=== PATIENT | female | born 1980 | race Caucasian/White ===

== ENCOUNTER 2017-07-30 03:05 | Emergency (ER) | payer BC ==
[~2017-07-30] VITALS: Ht 172.7 cm; Wt 66.2 kg
[2017-07-30 03:12] VITALS: Ht 172.7 cm; Wt 66.2 kg
[2017-07-30 05:14] LABS: BASOPHIL % 0.6 % (0-2); PLATELET COUNT 258 x10^3mcL (130-400); RED CELL DISTRIBUTION WIDTH 12.6 % (11.5-14.5)
[2017-07-30 05:24] LABS: CALCIUM 8.7 mg/dL (8.5-10.1); CARBON DIOXIDE 27.7 mmol/L (21-32); CHLORIDE SERUM 103 mmol/L (98-107); CREATININE SERUM 0.7 mg/dL (0.6-1.0); GFR1 > 60 mL/min; GLUCOSE SERUM 86 mg/dL (74-106); POTASSIUM SERUM 3.1 mmol/L (3.5-5.1); SODIUM SERUM 143 mmol/L (136-145)
[2017-07-30 05:31] LABS: ALBUMIN 3.9 g/dL (3.4-5.0); ALKALINE PHOSPHATASE 82 U/L (46-116); ALT/SGPT 50 U/L (14-59); AST/SGOT 51 U/L (15-37); TOTAL PROTEIN, SERUM 7.5 g/dL (6.4-8.2)
[2017-07-30 07:53] VITALS: BP 139/88
== END 2017-07-30 07:53 | disposition home or self-care (01) ==
LOC: ED 03:05
DX: K29.20 Alcoholic gastritis without bleeding (principal); F10.229 Alcohol dependence with intoxication, unspecified; Y90.6 Blood alcohol level of 120-199 mg/100 ml; K85.90 Acute pancreatitis without necrosis or infection, unspecified; K75.9 Inflammatory liver disease, unspecified
CPT/HCPCS: G0480; J7030

== ENCOUNTER 2018-11-12 19:30 | Emergency (ER) | payer BC ==
[~2018-11-12] VITALS: Ht 172.7 cm; Wt 73.3 kg
[2018-11-12 19:34] VITALS: Ht 172.7 cm; Wt 73.3 kg
[2018-11-12 21:41] LABS: BASOPHIL % 0.8 % (0-2); RED CELL DISTRIBUTION WIDTH 12.8 % (11.5-14.5)
[2018-11-12 21:52] LABS: PLATELET COUNT 439 x10^3mcL (130-400)
[2018-11-12 21:53] LABS: CALCIUM 8.4 mg/dL (8.5-10.1); CARBON DIOXIDE 28.4 mmol/L (21-32); CHLORIDE SERUM 102 mmol/L (98-107); CREATININE SERUM 0.8 mg/dL (0.6-1.0); GFR1 > 60 mL/min; GLUCOSE SERUM 89 mg/dL (74-106); POTASSIUM SERUM 3.8 mmol/L (3.5-5.1); SODIUM SERUM 140 mmol/L (136-145)
[2018-11-12 21:57] LABS: ALBUMIN 3.8 g/dL (3.4-5.0); ALKALINE PHOSPHATASE 77 U/L (46-116); ALT/SGPT 31 U/L (14-59); AST/SGOT 25 U/L (15-37); LIPASE 133 IU/L (73-393); PHOSPHOROUS 3.5 mg/dL (2.5-4.9); TOTAL PROTEIN, SERUM 8.2 g/dL (6.4-8.2)
[2018-11-12 22:10] LABS: AMPHETAMINE QUAL UR NONE DETECTED (See below)
[2018-11-12 23:06] VITALS: BP 136/86
== END 2018-11-12 23:06 | disposition home or self-care (01) ==
LOC: ED 19:30
PROVIDERS: Emergency Medicine
DX: R11.2 Nausea with vomiting, unspecified (principal); F10.239 Alcohol dependence with withdrawal, unspecified; F32.9 Major depressive disorder, single episode, unspecified; Z88.2 Allergy status to sulfonamides
CPT/HCPCS: G0480; J1885; J2405; J7030

== ENCOUNTER 2019-04-26 20:14 | Observation (INO) | payer OTHER ==
[~2019-04-26] VITALS: Ht 175.3 cm; Wt 68.2 kg
[2019-04-26 20:33] VITALS: Ht 175.3 cm; Wt 68.2 kg
[2019-04-26 20:51] LABS: BASOPHIL % 1.2 % (0-2); PLATELET COUNT 356 x10^3mcL (130-400)
[2019-04-26 20:58] LABS: CALCIUM 8.3 mg/dL (8.5-10.1); CARBON DIOXIDE 29.1 mmol/L (21-32); CHLORIDE SERUM 104 mmol/L (98-107); CREATININE SERUM 0.8 mg/dL (0.6-1.0); GFR1 > 60 mL/min; GLUCOSE SERUM 97 mg/dL (74-106); POTASSIUM SERUM 3.6 mmol/L (3.5-5.1); SODIUM SERUM 142 mmol/L (136-145)
[2019-04-26 21:04] LABS: ALKALINE PHOSPHATASE 81 U/L (46-116); ALT/SGPT 41 U/L (14-59); AST/SGOT 39 U/L (15-37); BILIRUBIN TOTAL 0.6 mg/dL (0.20-1.00); TOTAL PROTEIN, SERUM 8.2 g/dL (6.4-8.2)
[2019-04-26 23:25] LABS: UA SPECIFIC GRAVITY 1.015 (1.005-1.035); microscopic required? YES; urine erythrocyte 1+ (NEGATIVE)
[2019-04-26 23:53] LABS: AMPHETAMINE QUAL UR NONE DETECTED (See below)
[2019-04-27 04:29] VITALS: BP 131/86
[2019-04-27 06:49] LABS: BASOPHIL % 0.8 % (0-2); PLATELET COUNT 271 x10^3mcL (130-400)
[2019-04-27 06:52] LABS: RED CELL DISTRIBUTION WIDTH 14.8 % (11.5-14.5)
[2019-04-27 07:02] LABS: CALCIUM 7.7 mg/dL (8.5-10.1); CARBON DIOXIDE 26.1 mmol/L (21-32); CHLORIDE SERUM 107 mmol/L (98-107); CREATININE SERUM 0.7 mg/dL (0.6-1.0); GFR1 > 60 mL/min; GLUCOSE SERUM 71 mg/dL (74-106); POTASSIUM SERUM 3.4 mmol/L (3.5-5.1); SODIUM SERUM 143 mmol/L (136-145)
[2019-04-27] MEDS ORDERED: LIB25 PO (09:01)
[2019-04-27 09:08] VITALS: BP 128/79
[2019-04-27 12:23] VITALS: BP 138/75
[2019-04-27 14:02] VITALS: BP 138/75
== END 2019-04-27 17:55 | disposition home or self-care (01) ==
LOC: ED 20:14 → DU 04-27 01:20
PROVIDERS: Emergency Medicine; ADMIT Internal Medicine
DX: F10.239 Alcohol dependence with withdrawal, unspecified (principal); F32.9 Major depressive disorder, single episode, unspecified; I49.9 Cardiac arrhythmia, unspecified; F17.210 Nicotine dependence, cigarettes, uncomplicated
CPT/HCPCS: G0378; G0480; J2060; J2405; J3490; J7030; J7050